=== PATIENT | female | born 1955 | race Caucasian/White ===

== ENCOUNTER 2017-03-27 11:55 | Emergency (ER) | payer OTHER ==
[2017-03-27 12:11] VITALS: BP 149/96
[2017-03-27] MEDS ORDERED: Sodium Chloride 0.9% 10 ML Syringe FLUSH PRN (12:52)
--- NOTE | 2017-03-27 12:53 | EDM.PDOCBH ---
ED HPI GENERAL MEDICAL PROBLEM - General Chief Complaint: Drug or Alcohol Abuse Stated Complaint: MED[facility] Time Seen by Provider: 03/27/17 12:15 Source of Information: Reports: Patient, Provider History Limitations: Reports: No Limitations (nerves within the first set a lot of a lot of family) - History of Present Illness INITIAL COMMENTS - FREE TEXT/NARRATIVE: 62-year-old female who is in her second dayof detox out of [place] has become very agitated today, refusing to sleep in her room and despite 40 mg of Valium is still very anxious, tremor, and not cooperating. She was sent in to assess stabilization or other disposition. The patient herself is refusing to return to detox. Her is planning on coming around to pick her up tomorrow. She is actually thinking clearly and is oriented to person place and time. She is not hallucinating at this time. Onset: Unknown/Unsure Severity: Moderate Associated Symptoms: Reports: Malaise. Denies: Fever/Chills, Headaches, Shortness of Breath - Related Data Allergies Allergy/AdvReac Type Severity Reaction Status Date / Time blueberry Allergy Severe Anaphylactic Verified 03/27/17 13:22 Shock mold Allergy Severe Anaphylactic Verified 03/27/17 13:22 Shock Home Meds: Home Meds busPIRone [Buspar] 10 mg PO BID 03/27/17 [History] Past Medical History Cardiovascular History: Reports: Afib Other Cardiovascular History: Pt says that when she was in the [facility], she was in "a fibrillation". OFFICE ASST History: Reports: Spontaneous Neurological History: Reports: Other (See Below) Other Neuro History: essential Tremors Psychiatric History: Reports: Addiction, Anxiety - Past Surgical History Cardiovascular Surgical History: Reports: None GI Surgical History: Reports: Hernia, Inguinal Social & Family History - Tobacco Use Smoking Status *Q: Former Smoker Used Tobacco, but Quit: Yes Month Tobacco Last Used: May 04 years ago - Caffeine Use Caffeine Use: Reports: Coffee Other Caffeine Use: Pt normally drinks it but has not had any in the last 3 days. - Alcohol Use Days Per Week of Alcohol Use: 7 Number of Drinks Per Day: 10 Total Drinks Per Week: 70 - Recreational Drug Use Recreational Drug Use: No ED ROS GENERAL - Review of Systems Review Of Systems: See Below Constitutional: Reports: Malaise. Denies: Fever, Chills Respiratory: Denies: Shortness of Breath Cardiovascular: Denies: Chest Pain GI/Abdominal: Denies: Nausea, Vomiting Skin: Denies: Bruising Psychiatric: Reports: Agitation, Anxiety ED EXAM, BEHAVIORAL HEALTH - Physical Exam Exam: See Below Exam Limited By: No Limitations General Appearance: Alert, Anxious Eye Exam: Bilateral Eye: EOMI Respiratory/Chest: No Respiratory Distress, Lungs Clear Cardiovascular: Regular Rate, Rhythm, Tachycardia GI/Abdominal: Non-Tender Extremities: No: Pedal Edema Neurological: Alert, No Motor/Sensory Deficits, Oriented x 3 Psychiatric: Restless, Agitated Skin Exam: Warm, Dry COURSE, BEHAVIORAL HEALTH COMP - Course Vital Signs: Last Vital Signs Temp 96.1 F 03/27/17 12:25 Pulse 120 H 03/27/17 12:25 Resp 20 03/27/17 12:25 BP 149/96 H 03/27/17 12:25 Pulse Ox 98 03/27/17 12:25 Orders, Labs, Meds: Medication Orders Buspirone HCl (Buspar) 10 mg PO BID MADONNA Sodium Chloride (Saline Flush) 10 ml FLUSH ASDIRECTED PRN PRN Reason: Keep Vein Open Medications Generic Name Dose Route Start Last Admin Trade Name Freq PRN Reason Stop Dose Admin Buspirone HCl 10 mg 03/27/17 21:00 Buspar PO BID MADONNA Sodium Chloride 10 ml 03/27/17 12:52 Saline Flush FLUSH ASDIRECTED PRN Keep Vein Open Re-Assessment/Re-Exam: The patient was waiting to be admitted, her arrived and she convinced him to take her home. He was advised that she stay for detox treatment but she left AMA. 

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
[2017-03-27] MEDS ORDERED: busPIRone 10 MG Tab PO SCH (21:00)
== END 2017-03-27 15:50 | disposition left against medical advice (07) ==
LOC: JP.ED 11:55 → JP.ICU 12:52 → UNDOADMOB 12:52
DX: F10.232 Alcohol dependence with withdrawal with perceptual disturbance (principal); F41.9 Anxiety disorder, unspecified; F32.9 Major depressive disorder, single episode, unspecified; Z91.018 Allergy to other foods; I48.91 Unspecified atrial fibrillation; Z87.891 Personal history of nicotine dependence
CPT/HCPCS: 99283